=== PATIENT | female | born 1990 | race Caucasian/White ===

== ENCOUNTER 2019-07-20 04:45 | Emergency (ER) | payer OTHER ==
[2019-07-20 05:45] LABS: APPEARANCE,URINE CLEAR; BILIRUBIN,URINE NEGATIVE (NEGATIVE); COLOR,URINE YELLOW; GLUCOSE, URINE NEGATIVE (NEGATIVE); KETONES,URINE TRACE mg/dL (NEGATIVE); LEUKOCYTE ESTERASE,URINE NEGATIVE (NEGATIVE); NITRITE,URINE NEGATIVE (NEGATIVE); PROTEIN,URINE NEGATIVE (NEGATIVE); URINE SPECIFIC GRAVITY 1.019; UROBILINOGEN,URINE NEGATIVE mg/dL (<2.0)
[2019-07-20 06:42] LABS: ABSOLUTE BASOPHILS # (AUTO) 0.1 10^3/uL (0.0-0.2); ABSOLUTE LYMPHOCYTES (AUTO) 1.1 10^3/uL (0.5-4.7); ABSOLUTE MONOCYTES (AUTO) 0.3 10^3/uL (0.1-1.4); ABSOLUTE NEUT (AUTO) 7.3 10^3/uL (1.7-8.2); BASOPHILS % (AUTO) 0.7 % (0-2); EOSINOPHILS % (AUTO) 0.3 % (0-6); HEMATOCRIT 41.2 % (36.0-47.0); HEMOGLOBIN 14.5 g/dL (12.0-15.5); LYMPHOCYTES % (AUTO) 12.3 % (13-45); MEAN CORPUSCULAR HEMOGLOBIN 30.8 pg (27.0-33.4); MEAN CORPUSCULAR HGB CONC 35.1 g/dL (32.0-36.0); MEAN CORPUSCULAR VOLUME 88 fl (80-97); MONOCYTES % (AUTO) 3.6 % (3-13); PLATELET COUNT 285 10^3/uL (150-450); RED BLOOD COUNT 4.69 10^6/uL (3.72-5.28); RED CELL DISTRIBUTION WIDTH 12.2 % (11.5-14.0); SEGMENTED NEUTROPHILS % (AUTO) 83.1 % (42-78); TOTAL CELLS COUNTED % (AUTO) 100 %; WHITE BLOOD COUNT 8.8 10^3/uL (4.0-10.5)
--- NOTE | 2019-07-20 07:59 | ER Document Report ---
ED General - General Chief Complaint: Vag Bleeding, +preg <12wks Stated Complaint: 4 WEEKS WITH VAGINAL BLEEDING Time Seen by Provider: 07/20/19 07:10 Primary Care Provider: DUKE JHAVERI PA-C [Primary Care Provider] - Follow up as needed TRAVEL OUTSIDE OF THE [place] IN LAST 30 DAYS: No - HPI Notes: 21-year-old female G1, P0 approximately 4 weeks by dates presents with lower pelvic cramping and vaginal bleeding. Gradual onset since yesterday. Cramping pain, comes and goes. Moderate intensity, no worse with exertion. Poorly quantified amount of spotting. No care to this point. No other modifying factors, no other associated symptoms, no other provocative or palliative factors. - Related Data Allergies/Adverse Reactions: cefcil Allergy (Uncoded 07/20/19 05:01) Past Medical History - Social History Smoking Status: Never Smoker Chew tobacco use (# tins/day): No Frequency of alcohol use: None Drug Abuse: None Family History: Reviewed & Not Pertinent Patient has suicidal ideation: No Patient has homicidal ideation: No - Medical History Notes: No pertinent medical history Review of Systems - Review of Systems Notes: Review of systems as in the history of present illness, otherwise negative x 10 systems. Physical Exam - Vital signs Vitals: Temp Pulse Resp BP Pulse Ox 98.2 F 86 17 120/74 100 07/20/19 04:56 07/20/19 04:56 07/20/19 04:56 07/20/19 04:56 07/20/19 04:56 - Notes Notes: General: Well developed . HEENT: Normocephalic, atraumatic. Pupils equal round reactive to light. No JVD. Chest: No trauma. Respiratory: Good air exchange, normal excursion. Cardiac: Regular rhythm. No murmurs or gallops. Abdomen: Soft, benign. Nondistended. Nontender. Back: No asymmetry or gross abnormality. Motor: Grossly normal power and tone. Neurologic: Alert, nonfocal. Cranial nerves II-12 are intact. Sensation intact. Vascular: Well perfused. Normal peripheral pulses. Skin: No petechiae or purpura. Course - Re-evaluation Re-evalutation: 07/20/19 07:59 Well-appearing female with benign abdomen and first trimester vaginal bleeding. Consider ectopic versus threatened AB. We will proceed with serial exams, basic labs, quantitative beta-hCG and transvaginal ultrasound. 07/20/19 10:57 Labs reviewed, CBC unremarkable, chemistry unremarkable. Quantitative beta-hCG is low at 146. Patient is Rh+. Serial exam showed benign abdomen. Patient of note was able to tell me that she had a quantitative beta-hCG drawn a couple weeks ago and it was over 200. This appears to be consistent with a miscarriage. However, have not conclusively excluded an ectopic. Ultrasound is indeterminate, again likely due to demise. Patient is instructed to have her quantitative beta-hCG rechecked in 48 hours, return immediately for any worsening. - Vital Signs Vital signs: Temp Pulse Resp BP Pulse Ox 98.2 F 86 17 120/74 100 07/20/19 04:56 07/20/19 04:56 07/20/19 04:56 07/20/19 04:56 07/20/19 04:56 - Laboratory Result Diagrams: 07/20/19 06:25 Laboratory results interpreted by me: 07/20/19 07/20/19 07/20/19 05:03 06:25 06:25 Lymph % (Auto) 12.3 L Seg Neutrophils % 83.1 H Beta HCG, Quant 146.30 H Urine Ketones TRACE H Urine Ascorbic Acid 40 H Discharge - Discharge Clinical Impression: First trimester bleeding Condition: Stable Disposition: HOME, SELF-CARE Instructions: Bleeding During Early ([facility]) Additional Instructions: See your [facility]PER [facility] doctor within 48 hours for a repeat quantitative beta-hCG check. Referrals: DUKE JHAVERI PA-C [Primary Care Provider] - Follow up as needed
--- NOTE | 2019-07-20 09:06 | RADIOLOGY REPORT (SQ) ---
EXAM DESCRIPTION: U/S OB TRANSVAGINAL W/O DOP COMPLETED DATE/TIME: 07/20/2019 8:42 am REASON FOR STUDY: First trimester pain and bleeding COMPARISON: None. TECHNIQUE: Transvaginal and transabdominal static and realtime grayscale images acquired of the pelv is. Additional selected color Doppler images recorded. All images stored on PACs. bHC.30 mIU per mL CLINICAL DATES: LMP this of 04/02/2019; the estimated gestational age based on LMP is 6 weeks and 6 d ays. LIMITATIONS: None. FINDINGS: The uterus measures 8 x 5.2 x 4 cm. The myometrium is homogeneous. The endometrium measures up to 10 mm in thickness. There is no evidence of intrauterine gestation. The measures 2.2 cm in length. The right ovary measures 2.5 x 2.1 x 3.7 cm ; within the right ovary there is a hypoechoic structure with an echogenic rim that measures approximately 1.8 x 1.5 x 1.3 cm. The left ovary measures 2.1 x 2.5 x 1.9 cm. There is no left adnexal mass. There is a trace amount of free fluid in the cul-de-sac. IMPRESSION: 1. No evidence of intrauterine gestation. In the setting of a positive beta HCG the dif ferential considerations include: an early intrauterine gestation, a failed intrauterine gestation, and a nonvisualized ectopic . Correlation with serial beta HCGs is recommended. 2. Hypoechoic structure with an echogenic rim in the right ovary that measures approximately 1.8 x 1 .5 x 1.3 cm could represent a corpus luteum cyst. 3. Trace amount of free fluid in the cul-de-sac. TECHNICAL DOCUMENTATION: JOB ID: [id number] ([employer])- All Rights Reserved rev-03/06 Reading location - IP/workstation name: DIRECTOR OF [employer]PORATE [email or web address]
[2019-07-20 11:06] VITALS: BP 127/75
== END 2019-07-20 11:04 | disposition home or self-care (01) ==
LOC: ER 04:45
DX: O20.9 Hemorrhage in early pregnancy, unspecified (principal); O26.891 Other specified pregnancy related conditions, first trimester; R10.2 Pelvic and perineal pain; Z3A.00 Weeks of gestation of pregnancy not specified
CPT/HCPCS: 36415; 76817; 81001; 84702; 85025; 86900; 86901